=== PATIENT | male | born 1965 | race Caucasian/White ===

== ENCOUNTER 2019-02-28 08:26 | Emergency (ER) | payer MEDICARE, MEDICAID ==
[~2019-02-28] VITALS: Ht 182.9 cm; Wt 106.4 kg
[~2019-02-28 08:26] MED LIST: FLUT16SP20 BOTHNARES
[2019-02-28 08:42] VITALS: BP 145/103
[2019-02-28] MEDS ORDERED: LIDO700A32 TOP (09:21)
== END 2019-02-28 09:39 | disposition home or self-care (01) ==
LOC: ER 08:27
DX: S20.212A Contusion of left front wall of thorax, initial encounter (principal); E78.00 Pure hypercholesterolemia, unspecified; I10 Essential (primary) hypertension; E11.9 Type 2 diabetes mellitus without complications; Z87.891 Personal history of nicotine dependence; Z88.1 Allergy status to other antibiotic agents; Z79.899 Other long term (current) drug therapy; W18.49XA Other slipping, tripping and stumbling without falling, initial encounter; Y93.89 Activity, other specified; Y92.89 Other specified places as the place of occurrence of the external cause; Y99.9 Unspecified external cause status
CPT/HCPCS: 71101; 99284

== ENCOUNTER 2019-07-14 11:18 | Emergency (ER) | payer MEDICARE, MEDICAID ==
[~2019-07-14] VITALS: Ht 182.9 cm; Wt 98.2 kg
[~2019-07-14 11:18] MED LIST changes: +LIDO700A32 TOP
[2019-07-14] MEDS ORDERED: ROBCFL PO (12:07)
[2019-07-14 13:34] VITALS: BP 141/87
== END 2019-07-14 13:38 | disposition home or self-care (01) ==
LOC: ER 11:19
DX: J20.9 Acute bronchitis, unspecified (principal); E78.00 Pure hypercholesterolemia, unspecified; I10 Essential (primary) hypertension; E11.9 Type 2 diabetes mellitus without complications; Z87.891 Personal history of nicotine dependence; Z88.1 Allergy status to other antibiotic agents; Z79.899 Other long term (current) drug therapy
CPT/HCPCS: 71046; 87502; 87503; 93005; 99284

== ENCOUNTER 2023-08-30 06:08 | Emergency (ER) | payer MEDICARE, MEDICAID ==
[~2023-08-30] VITALS: Ht 182.9 cm; Wt 99.1 kg
[~2023-08-30 06:08] MED LIST changes: -FLUT16SP20 BOTHNARES; +FLUT16SP35 BOTHNARES
[2023-08-30 06:12] VITALS: TEMP 98.6
[2023-08-30] MEDS ORDERED: AMOX-101 PO (06:27)
[2023-08-30 06:39] VITALS: RESP 16
[2023-08-30] MEDS: ketorolac trometh inj. 60 MG/2 ML VIAL IM ONE (06:39)
[2023-08-30] MEDS: dexamethasone sod phosphate 10mg/ml inj PO STA (06:40)
[2023-08-30 06:45] VITALS: BP 145/83; PULSE 85; O2SAT 97
== END 2023-08-30 06:56 | disposition home or self-care (01) ==
LOC: ER 06:08
DX: K08.89 Other specified disorders of teeth and supporting structures (principal); E78.00 Pure hypercholesterolemia, unspecified; I10 Essential (primary) hypertension; E11.9 Type 2 diabetes mellitus without complications; F17.200 Nicotine dependence, unspecified, uncomplicated; Z88.8 Allergy status to other drugs, medicaments and biological substances; Z79.899 Other long term (current) drug therapy
CPT/HCPCS: 96372; 99283; J1100; J1885